=== PATIENT | female | born 1975 | race Caucasian/White ===

== ENCOUNTER 2022-07-29 12:47 | Emergency (ER) | payer MEDICAID ==
[~2022-07-29] VITALS: Ht 167.6 cm; Wt 57.2 kg
[2022-07-29 13:28] VITALS: BP 99/69
--- NOTE | 2022-07-29 13:30 | NUR ---
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 PMH: SEIZURE. LAST SEIZURE LAST NIGHT.
[2022-07-29] MEDS ORDERED: IBUPROFEN 600 MG TAB PO ONE (16:25)
[2022-07-29] MEDS ORDERED: ACETAMINOPHEN 325 MG TAB PO ONE (16:25)
[2022-07-29] MEDS ORDERED: SULFAMETH/TRIMETH DS 800/160MG 1 TAB PO ONE (16:30)
[2022-07-29] MEDS ORDERED: IBUP-2218 PO (17:11)
[2022-07-29] MEDS ORDERED: CYCL-711 PO (17:11)
[2022-07-29] MEDS ORDERED: SULF-59 PO (17:11)
[2022-07-29 17:35] VITALS: BP 113/68
== END 2022-07-29 17:35 | disposition home or self-care (01) ==
LOC: MED 12:47
DX: L03.317 Cellulitis of buttock (principal); F15.90 Other stimulant use, unspecified, uncomplicated; Z79.899 Other long term (current) drug therapy
CPT/HCPCS: 99284